=== PATIENT | female | born 1975 | race Hispanic/Latino ===

== ENCOUNTER 2018-01-27 19:22 | Emergency (ER) | payer OTHER ==
[2018-01-27] MEDS ORDERED: ACETAMINOPHEN 325 MG TAB ONE (19:51)
== END 2018-01-27 20:02 | disposition home or self-care (01) ==
LOC: EDH 19:22
DX: S33.5XXA Sprain of ligaments of lumbar spine, initial encounter (principal); Z98.51 Tubal ligation status; Z90.710 Acquired absence of both cervix and uterus; Z90.49 Acquired absence of other specified parts of digestive tract; Z88.6 Allergy status to analgesic agent; Z88.8 Allergy status to other drugs, medicaments and biological substances; X58.XXXA Exposure to other specified factors, initial encounter; Y93.89 Activity, other specified; Y92.89 Other specified places as the place of occurrence of the external cause; Y99.8 Other external cause status